=== PATIENT | female | born 1940 | race American Indian/Alaskan Native ===

== ENCOUNTER 2017-09-21 07:47 | Day surgery (SDC) | payer OTHER ==
--- NOTE | 2017-09-20 13:02 | HP ---
- Patient Scheduled date of Surgery: 09/21/17 Scheduled Surgical Procedure: Phacoemulsification and cataract extraction with PCIOL Affected Eye: Left Chief Complaint (Indication for surgery): Decreased vision affecting ADLs - Ocular History Other Eye History: Other (PVD OD, CLEMENT[place]) Eye Medications: vigamox Previous Eye Surgery: s/p ce/pciol OD - Medical History Past Medical History: none Illnesses: None Current Medications: none Allergies/Adverse Reactions: Allergies Allergy/AdvReac Type Severity Reaction Status Date / Time No Known Allergies Allergy Verified 09/20/17 12:59 Ocular Examination - Best Corrected Visual Acuity Distance: Right eye: 20/20- Distance: Left eye: 20/40 - External/Slit Lamp Examination Abnormalities: none - Intraocular Pressure Intraocular Pressure - Right eye: 16 Intraocular Pressure-Left eye: 16 - Lens Lens: 3+ NS 3+ cortical change - Vitreous/Retina Vitreous/Retina: c:d 0.45 poor dilation m/v wnl - Special Examination M - Right eye: -0.50 -0.50 x 080 M - Left eye: +1.00-1.25 x 120 K - Right eye: 45.75/46 x 145 K - Left eye: 45.50 /46 x 015 AL - Left eye: 22.75 IOL bag: +20.5 d hoya 251 IOL sulcus: +19.5 d hoya 231 IOL AC: +17.0 d [id number] - Impression Impression: Cataract Left Eye - Plan Plan: Phacoemulsification and cataract extraction - IOL Left eye Post-hospital care will be provided in office on: 09/22/17
--- NOTE | 2017-09-20 13:02 | HP ---
History & Physical Update - History History: No Change - Physical Physical: No Change - Assessment Assessment: No Change - Plan Plan: No Change
[2017-09-20 14:28] VITALS: BMI 26.4
[~2017-09-21 07:47] MED LIST: ACETAMINOPHEN 325 MG TABLET (FP) PO PRN; BSS (NA/CA/MG/K) BALANCED SALT SOLUTION OPHTH SOLN 15 ML BOTTLE OD ONE; BUPIVACAINE HCL/PF 0.75% 10 ML VIAL RB ONE; CHONDROITIN SU A/HYALUR SOD 1 KIT IO ONE; EPINEPHrine/PF 1 MG/1 ML (1:1,000) AMPULE SQ ONE; LIDOCAINE HCL/PF 2% SDV 5ML VIAL INF ONE; POVIDONE-IODINE 5% OPHTHALMIC PREP 30 ML SOLUTION OD ONE; TETRACAINE 0.5% OPHTH SOLN 2 ML BOTTLE TP ONE; TOBRAMYCIN 0.3% OPHTH OINT 3.5 GM OD ONE; TOBRAMYCIN/DEXAMETHASONE OPHTH. OINTMENT 1 TUBE OS ONE
[2017-09-21] MEDS ORDERED: CIPROFLOXACIN 0.3% EYE DROPS 5 ML BOTTLE ONE (08:09)
[2017-09-21] MEDS: TROPICAMIDE 1% OPHTH SOLN 15 ML BOTTLE OP SCH ×3 (08:20→08:35)
[2017-09-21] MEDS: DICLOFENAC SODIUM 0.1% OPHTHALMIC 2.5ML BOTTLE OP SCH ×3 (08:20→08:35)
[2017-09-21] MEDS: PHENYLEPHRINE 2.5% OPHTH SOLN 15 ML BOTTLE OP SCH ×3 (08:20→08:35)
[2017-09-21 08:27] VITALS: TEMP 98.4
[2017-09-21] MEDS: CIPROFLOXACIN HCL 0.3% OPHTH 2.5ML BOTTLE OP SCH ×2 (08:30→08:35)
[2017-09-21] MEDS ORDERED: TOBRAMYCIN/DEXAMETHASONE OPHTH. OINTMENT 1 TUBE ONE (10:08)
[2017-09-21] MEDS ORDERED: EPINEPHrine/PF 1 MG/1 ML (1:1,000) AMPULE ONE (10:08)
[2017-09-21] MEDS ORDERED: PROPOFOL 20 ML ONE (11:32)
[2017-09-21] MEDS ORDERED: TETRACAINE 0.5% OPHTH SOLN 2 ML BOTTLE ONE (11:34)
[2017-09-21] MEDS ORDERED: LIDOCAINE HCL/PF 2% SDV 5ML VIAL INF ONE (11:39)
[2017-09-21] MEDS ORDERED: BUPIVACAINE HCL/PF 0.75% 10 ML VIAL RB ONE (11:39)
[2017-09-21] MEDS ORDERED: POVIDONE-IODINE 5% OPHTHALMIC PREP 30 ML SOLUTION OS ONE (11:42)
[2017-09-21] MEDS ORDERED: CHONDROITIN SU A/HYALUR SOD 1 KIT IO ONE (11:48)
[2017-09-21] MEDS ORDERED: BSS (NA/CA/MG/K) BALANCED SALT SOLUTION OPHTH SOLN 15 ML BOTTLE OS ONE (11:48)
[2017-09-21] MEDS ORDERED: TETRACAINE 0.5% OPHTH SOLN 2 ML BOTTLE TP ONE (11:48)
[2017-09-21] MEDS ORDERED: TRYPAN BLUE 0.5 ML DISP.SYRIN IO ONE (11:48)
[2017-09-21] MEDS ORDERED: EPINEPHrine/PF 1 MG/1 ML (1:1,000) AMPULE SQ ONE (11:57)
[2017-09-21] MEDS ORDERED: TOBRAMYCIN/DEXAMETHASONE OPHTH. OINTMENT 1 TUBE OS ONE (12:23)
--- NOTE | 2017-09-21 12:35 | OP ---
Ophthalmology Operative Note Pre-Operative Diagnosis: Cataract (and miosis) Affected Eye: Left Operation: Phacoemulsification and cataract extraction with PCIOL (using trypan blue and malyugan ring) Findings: cataract and miosis left eye Post-Operative Diagnosis: Same as Pre-op Refuse Laborer: Felix Anesthesiologist: Loyda Yadav MD Anesthesia: Retrobulbar Specimens Removed: none Estimated blood loss: 1 cc Drains & Tubes with Location: none Operative Report Dictated: Yes
[2017-09-21 13:27] VITALS: BP 156/88; PULSE 92
--- NOTE | 2017-09-22 10:04 | OP ---
DATE OF OPERATION: DATE OF DICTATION: 09/21/2017 PREOPERATIVE DIAGNOSIS: Cataract, left eye. POSTOPERATIVE DIAGNOSIS: Cataract and miosis, left eye. PROCEDURE: Phacoemulsification and cataract extraction with posterior chamber intraocular lens, left eye, using Malyugin ring and trypan blue. SURGEON: Laura Fernández MD PURCHASE ANALYST: None. ANESTHESIA: Retrobulbar block. ANESTHESIOLOGIST: Loyda Yadav MD OPERATIVE PROCEDURE: Following satisfactory intravenous sedation, the patient received local anesthesia using a 50/50 mixture of lidocaine 2% and Marcaine 0.75%. A Van Lint lid block was delivered to the left eye using 4 mL of the mixture and a retrobulbar injection using 4 mL of the mixture. The patient was then prepped and draped in the usual sterile fashion so as to expose only the left eye. Ophthalmic Betadine was instilled into the inferior fornix, and lashes were taped out of the surgical field. An eyelid speculum was placed into the left eye. A paracentesis was made in inferior clear cornea at the limbus. An air bubble was injected into the anterior chamber, and trypan blue was dripped on the anterior capsule. Viscoelastic material was then instilled into the anterior chamber via the paracentesis, and a 2.4-mm keratome was then used to create the main incision in temporal clear cornea at the limbus. A Malyugin ring was inserted through the main wound and used to expand the pupil. It was centered using a Angelo hook. A continuous curvilinear capsulorrhexis was performed using a cystotome and Utrata forceps. Hydrodissection of the lens cortex was performed using BSS on a cannula until the nucleus was noted to be freely rotating. The phacoemulsification tip was inserted via the main wound and used to sculpt 2 perpendicular grooves into the lens nucleus. The nucleus was cracked into 4 quadrants using 2 instruments. Each quadrant was lifted out of the capsule into the iris plane and individually phacoemulsified. The remaining cortical material was then aspirated using irrigation and aspiration port. The capsular bag was inflated using Provisc and a pre-loaded Hoya lens model 251, power +20.5 diopters was injected into the capsular bag and centered using a Sinskey hook. The Malyugin ring was then disinserted from the iris using Angelo hook and removed from the eye using the record changer tester. The residual Viscoelastic material was removed from the anterior chamber using irrigation and aspiration. The wound edges were hydrated using BSS. The wound was tested for leakage. It was found to be watertight. Therefore, TobraDex ointment was placed in the eye and the speculum was removed from the eye. The eyelid was closed. A sterile dressing and singh were placed over the eye, and the patient was transferred to the recovery room in stable condition, told to follow up in 1 day. LAURA FERNÁNDEZ M.D. [id number]
== END 2017-09-21 13:25 | disposition home or self-care (01) ==
LOC: JASU-SURG 07:47
PROVIDERS: ATTEND Ophthalmology
PROC: 08RK3JZ Replacement of Left Lens with Synthetic Substitute, Percutaneous Approach (ICD-10-PCS; principal; 2017-09-21 09:30)
DX: H26.9 Unspecified cataract (principal); H57.03 Miosis